=== PATIENT | female | born 1965 | race Caucasian/White ===

== ENCOUNTER 2017-01-25 05:49 | Inpatient (IN) | payer BC ==
[2017-01-25] MEDS ORDERED: MORPHINE SULFATE 15 MG TABLET.SA PO PRN (06:00)
[2017-01-25] MEDS ORDERED: TRANEXAMIC ACID 1,000 MG in NORMAL SALINE 100 ML IV PRN (06:00)
[2017-01-25] MEDS ORDERED: ceFAZolin SODIUM 1 GM VIAL IV PRN (06:00)
[2017-01-25] MEDS: RINGER'S SOLUTION,LACTATED 1,000 ML IV PRN ×2 (06:30→07:45)
[2017-01-25] MEDS ORDERED: RINGER'S SOLUTION,LACTATED 1,000 ML IV ONE ×2 (08:45→09:35)
[2017-01-25] MEDS: ROPIVACAINE HCL/PF 100 MG, KETOROLAC TROMETHAMINE 30 MG, EPINEPHrine 0.2 MG in NORMAL S... IJ PRN ×2 (09:16→09:23)
[2017-01-25] MEDS ORDERED: MAGNESIUM HYDROXIDE 30 ML UDC PO PRN (10:12)
[2017-01-25] MEDS ORDERED: MAG HYDROX/ALUMINUM HYD/SIMETH 30 ML UDC PO PRN (10:12)
[2017-01-25] MEDS ORDERED: PROMETHAZINE HCL 5 MG in DEXTROSE 5 % IN WATER 50 ML IV PRN ×2 (10:12)
[2017-01-25] MEDS ORDERED: ACETAMINOPHEN 500 MG TABLET PO PRN (10:12)
[2017-01-25] MEDS ORDERED: ZOLPIDEM TARTRATE 5 MG TABLET PO PRN (10:12)
--- NOTE | 2017-01-25 10:15 | POSTOP NO ---
Date of Surgery: 01/25/17 Anesthesia: Spinal, regional, local Patient Tolerated the Procedure: Well Post Operative Diagnosis/Procedures: Special Effects Artist: Sahil Hensley PA-C Post-operative Diagnosis: Left knee degenerative joint disease Finding: Above Procedure: Left total knee arthroplasty Estimated Blood Loss: Minimal Specimens: Bone for disposal
--- NOTE | 2017-01-25 10:17 | OR ---
Operative Report - Dictated Report Narrative: Date: 01/25/2017 Preoperative diagnosis: Left Knee degenerative joint disease. Postoperative diagnosis: Left Knee degenerative joint disease. Procedure: Left Total knee arthroplasty. Surgeon: Jossue Lazaro M.D. Manager Fashion: Sahil Hensley PA-C Anesthesia: Spinal with regional block and local periarticular joint injection. Complications: None Specimens: Bone for disposal. Estimated blood loss: Minimal. Tourniquet time: 97 Minutes at 325 millimeters of mercury. Retained implants: Depuy Attune size 6 narrow left lugged cemented posterior stabilized femoral component. Size 5 fixed-bearing cemented tibial platform. 6 by 8 millimeter posterior stabilized cross-linked tibial insert. 38 millimeter medialized patella button. Indications: Mrs. Enrique is a 51-year-old female who has had long-standing left knee pain and arthrosis. This patient was followed in my clinic for period of time with significant complaints of left knee pain consistent with arthritic changes. She had failed conservative measures including, but not limited to, activity modification, passage of time, medications, and other conservative measures. Patient wished to proceed with surgical treatment. The risks, benefits, and alternatives were discussed in clinic. The risks of , blood clots, bleeding, infection, nerve/tendon blood vessel/ injury, malposition of components, intraoperative fracture, postoperative limited range of motion, persistent pain, failure of components, and need for additional procedures. Patient wished to proceed consent was obtained after answering all questions. Procedure: After marking the correct extremity on the floor, the patient was taken to the operating room. A timeout was performed. IV antibiotics consisting of Ancef were administered prior to the procedure. A regional followed by spinal anesthetic was induced by anesthesia, per my request, on the operative table with all bony prominences well-padded. Hardy catheter was placed, and a bump was placed under the operative side buttock. SCDs and GUILLERMO hose were utilized on the nonoperative leg. A well-padded tourniquet was applied to the operative thigh. The operative leg was then pre-scrubbed with alcohol prepped, and draped in a standard sterile fashion. After exsanguinating the extremity with an Esmarch bandage, the tourniquet was inflated. After marking out the anterior knee for standard incision centered over the patella, the skin was incised and dissected down to the joint retinaculum. The joint retinaculum was marked out as well as the horizontal axis of the patella, and a standard medial parapatellar arthrotomy was then made. The most proximal aspect of the quadriceps tendon and the patella tendon insertion were protected from release. A partial synovectomy was performed as well as a resection of the infrapatellar fat pad. The distal femoral fat pad proximal to the trochlea was also resected using cautery. The soft tissues were elevated off the medial aspect of the proximal tibia using a Zuniga elevator ensuring that we did not transect the medial collateral ligament. Upon initial evaluation range of motion was approximately 0 degrees to 130 degrees of flexion. There were signs of advanced arthrosis in the medial, patellofemoral, and to a lesser degree lateral joint spaces. There were large marginal osteophytes which were removed with a rongeur. The knee was hyperflexed and the patella was tucked laterally. Protecting the surrounding soft tissues with Homans, an entry drill was placed down the femoral canal using Whitesides line for guidance into the entry point. The intramedullary femoral alignment sara was utilized in order to cut the distal femur in 5 degrees of valgus resecting 10 millimeters of bone. Next the distal femur was sized to a size 6. A posterior referencing guide was utilized to place the distal femoral cutting block in 3 degrees of external rotation. This was pinned into place. The rotation was confirmed both visually and based on anatomic landmarks. The 4 in 1 cutting jig of the appropriate size was utilized in order to make all bony cuts. The angle wing was used to ensure no notching. Retractors were utilized in order to protect surrounding soft tissues. This cut did not result in any excessive notching. We then cut the box centered over the distal femur. This allowed for resection of the anterior and posterior cruciate ligaments. I then turned my attention to the preparation of the tibia. Using an extra medullary tibial alignment sara, 3 millimeters of bone was resected off the medial articular surface. This was made perpendicular to the mechanical axis of the joint with the alignment sara centered over the ankle mortise. The alignment sara was checked and was noted to be parallel to the mechanical axis, centered over the medial one third of the tibial tubercle, paralleling the anterior surface of the tibia. We then turned our attention to the remaining meniscus and soft tissues. These were removed while protecting the surrounding ligaments and soft tissues. The marginal osteophytes off the anterior, posterior, medial, lateral aspects of the femur and tibia were removed. The tibia was sized out to a size 5. Next the tibia was drilled and punched in an externally rotated position. Next the trial femur and a series of tibial inserts were utilized in order to allow for full extension and maximal flexion. It was found that a 8 millimeter insert gave the best range of motion and stability at multiple flexion points as well as at full extension there was less than 2 mm of gapping both medially and laterally. There is minimal anterior translation with the knee at 90 degrees of flexion and no signs of being able to dislocate the knee. The patella was then prepared. The initial thickness was 21 millimeters. This was reamed down to 12 millimeters parallel to the anterior surface of the patella. It was sized out to a size 38 medialized patella button. This was then drilled and trialed. Without any medial restraint the patella tracked appropriately and did not sublux or dislocate. At this point, it was felt these were the appropriate sized implants, and all trials were removed. The standard periarticular joint injection consisting of ropivacaine, Toradol, and epinephrine were injected into the periarticular joint tissues. The bony surfaces were thoroughly irrigated with a pulsatile- suction saline irrigation device. A bone plug from the prior resected anterior chamfer cut was placed into the drill hole at the distal femur. The bony surfaces were then dried in preparation for placement of the implants. The cement was vacuum mixed per the level glass vial filler's instructions. The cement was placed on the dry bony surfaces and posterior aspect of the implants. The implants were impacted into place, removing all extruded cement. At this point anesthesia administered tranexamic acid per protocol intravenously. The knee was placed in extension with axial loading with the trial insert while the cement cured. Once the cement cured, all remaining extruded cement was removed. The knee was placed through a range of motion with the trial insert to ensure appropriate range of motion and stability. Final range of motion was approximately 0 to 120 degrees. The knee was again thoroughly irrigated with pulsatile saline lavage. The final polyethylene insert was then impacted into place ensuring no retained soft tissues. The remaining periarticular joint injection was injected. A medium Hemovac drain was placed exiting superior laterally. The knee was then placed over a triangle and the arthrotomy was closed with interrupted #1 Vicryl after thoroughly irrigating the joint. The deep and subcutaneous tissues were closed with interrupted 0 and 3-0 Vicryl respectively. Skin was closed with a running subcutaneous 3-0 Monocryl and Prineo Dermabond dressing. 4 x 4's, Sof-Rol, and a full leg Anshu wrap were applied. All sponge, needle, blade, and instrument counts were correct prior to closing the wounds. Postoperative condition: The patient was awoken and transferred to the postanesthesia care unit in stable condition. Plan is to be admitted to the inpatient medical/surgical floor postoperatively for 24 hours of IV antibiotics , physical therapy, occupational therapy, and medical comanagement. Patient will be weightbearing as tolerated with range of motion as tolerated. DVT prophylaxis will be with SCDs, GUILLEROM hose, and pharmacological anticoagulation. Anticipated hospital stay is approximately 2-4 days.
--- NOTE | 2017-01-25 10:34 | OR ---
Anesthesia Procedure Note - Anesthesia Procedure Note Date of Service: 01/25/17 Narrative: Vital Signs - Last Taken Temp 36.8 C 01/25/17 07:20 Pulse 60 01/25/17 07:20 Resp 18 01/25/17 07:20 BP 143/92 01/25/17 07:20 Pulse Ox 99 01/25/17 07:20 O2 Oxygen Delivery Method Room Air 01/25/17 10:32 ANESTHESIA PROCEDURE NOTE Date of Procedure: 01/25/2017. Time of procedure: 744. Performed by: Maciel Mcgee CRNA Assistant Golf Course Superintendent: None. Preprocedure diagnosis: Left knee DJD. Post procedure diagnosis: Same. Procedure: Left ultrasound guided femoral block for postoperative analgesia. Indications: The patient is a 51 -year-old female, who is scheduled for left knee total arthroscopy and is requesting a left ultrasound-guided femoral nerve block for postoperative analgesia. Findings: See below. Details of the procedure: The tissue over the intended target site was cleansed with ChloraPrep. 1 ml Lidocaine 1 % was infiltrated to the skin and subcutaneous tissue. Under sterile technique and ultrasound guidance a 21-gauge block needle was inserted anterior to the left femoral nerve . 30 mL's of 0.5% bupivacaine plus epinephrine 1:200,000 was injected after negative aspiration for blood. Needle tip and spread of local anesthetic surrounding the femoral nerve was observed throughout the injection with realtime ultrasound visualization. The needle was removed intact. No complications were noted. The images were retained in the Hospital medical database . EBL: Minimal. Fluids: N/A. Specimen: N/A. Post procedure condition: The patient tolerated the procedure well. No complications were noted. Thank you for this consultation. Maciel Mcgee CRNA
[2017-01-25] MEDS ORDERED: NALOXONE HCL 0.4 MG/ML VIAL IV PRN (10:46)
[2017-01-25] MEDS ORDERED: HYDROmorphone HCL 2 MG/ML VIAL IV PRN (10:46)
[2017-01-25] MEDS ORDERED: HYDROmorphone HCL 1 MG/ML DISP.SYRIN IV PRN (10:49)
[2017-01-25] MEDS: DEXTROSE 5%-LACTATED RINGERS 1,000 ML IV PRN ×2 (11:18→20:17)
[2017-01-25] MEDS: KETOROLAC TROMETHAMINE 15 MG/ML VIAL IV SCH ×3 (11:20→23:51)
[2017-01-25] MEDS: ceFAZolin SODIUM 1 GM in DEXTROSE 5 % IN WATER 100 ML IV SCH ×6 (11:21→23:51)
[2017-01-25] MEDS: diphenhydrAMINE HCL 50 MG/ML VIAL IV PRN ×2 (11:24→19:02)
[2017-01-25] MEDS: HYDROmorphone HCL 1 MG/ML DISP.SYRIN IV PRN ×2 (19:02→21:07)
[2017-01-25] MEDS: MORPHINE SULFATE 15 MG TABLET.SA PO SCH (20:16)
[2017-01-25] MEDS: SENNOSIDES/DOCUSATE SODIUM 1 TAB TABLET PO SCH (20:16)
[2017-01-25] MEDS: oxyCODONE HCL/ACETAMINOPHEN 1 TAB TABLET PO PRN (22:10)
[2017-01-26] MEDS: oxyCODONE HCL/ACETAMINOPHEN 1 TAB TABLET PO PRN ×4 (02:37→23:17)
[2017-01-26] MEDS: diphenhydrAMINE HCL 50 MG/ML VIAL IV PRN ×2 (04:33→08:53)
[2017-01-26] MEDS: KETOROLAC TROMETHAMINE 15 MG/ML VIAL IV SCH ×4 (04:34→23:23)
[2017-01-26 05:42] LABS: Hemoglobin 10.2 gm/dL (12.5-16.0); Mean Cell Volume 86.6 fl (78-100); Mean Corpuscular Hemoglobin 28.5 pg (27-31); Mean Corpuscular Hgb Conc 32.9 g/dl (32-36); Mean Platelet Volume 12.6 fl (6.0-9.5); Platelet Count 236 K/mm3 (150-450); Red Blood Count 3.58 M/mm3 (4.2-5.4); Red Cell Distribution Width 14.6 % (11.5-14.0)
[2017-01-26 05:45] LABS: Anion Gap 7.7 mmol/L (6.8-13.8); BUN/Creatinine Ratio 11.1 (9.0-21.6); Calcium * 8.2 mg/dL (7.9-10.9); Carbon Dioxide 32.2 mmol/L (24-32.6); Estimated Creat Clear 62.4; Potassium 2.9 mmol/L (3.4-4.6)
[2017-01-26] MEDS: PANTOPRAZOLE SODIUM 40 MG TABLET.EC PO SCH (06:42)
[2017-01-26] MEDS: MORPHINE SULFATE 15 MG TABLET.SA PO SCH ×2 (08:38→20:15)
[2017-01-26] MEDS: amLODIPine BESYLATE 10 MG TABLET PO SCH (08:38)
[2017-01-26] MEDS: HYDROCHLOROTHIAZIDE 25 MG TABLET PO SCH (08:39)
[2017-01-26] MEDS: ATENOLOL 50 MG TABLET PO SCH (08:39)
[2017-01-26] MEDS: OXYBUTYNIN CHLORIDE 5 MG TABLET PO SCH ×2 (08:39→20:15)
[2017-01-26] MEDS: ENOXAPARIN SODIUM 40 MG/0.4 ML SYRG SC SCH (08:39)
[2017-01-26] MEDS: POTASSIUM CHLORIDE 20 MEQ TABLET.SA PO ONE ×2 (08:43→12:36)
--- NOTE | 2017-01-26 09:55 | PN ---
Subjective - Date and Time Seen Date: 01/26/17 Time: 09:53 Subjective Narrative: Subjective: Reports mild pain and buckling of her knee yesterday but this is improved this morning. Was able to walk in the room with therapy. Pain is well -controlled. Voiding without any complications. Tolerating by mouth intake. Denies any nausea or vomiting. Denies calf pain. Slept well. Physical exam: Alert and oriented to person, place and time Left lower Extremity: Palpable dorsalis pedis pulse. Sensation grossly intact to light touch. Dressings clean and dry. Able to flex and extend ankle and toes. No excessive drainage. Calf and thigh are soft and nontender. Assessment: Postop day 1 status post left total knee arthroplasty. Plan: Due to the need for pain control, post-operative limited mobility, protection of the surgical site and joint, monitoring of the wound, and the management of chronic medical conditions, she requires continued inpatient care. She has not met her physical therapy goals for discharge to home. Continue with physical and occupational therapy weightbearing as tolerated. Continue with anticoagulation. 24 hours postoperative prophylactic antibiotics. Pain control with goal to rely on oral medications. Continue bowel regimen. Will need 6 weeks with walker or assitive device to protect joint while ambulating during the recovery process. Discharge planning. Discontinue drain and Hardy catheter. Repeat hemogram and BMP in a.m. in order to monitor for postoperative anemia and electrolyte imbalance. Her potassium is low today and this is being replaced orally Objective - Vitals Vitals: Last Vital Signs Temp 37.6 C H 01/26/17 06:21 Pulse 74 01/26/17 08:39 Resp 18 01/26/17 06:21 BP 111/60 01/26/17 08:39 Pulse Ox 94 01/26/17 06:21 - Abnormal Lab Findings Abnormal Lab Findings: Abnormal Lab Results 01/26/17 01/26/17 Range/Units 05:15 05:15 WBC 12.0 H (4.0-10.5) K/mm3 RBC 3.58 L (4.2-5.4) M/mm3 Hgb 10.2 L (12.5-16.0) gm/dL Hct 31.0 L (37.0-47.0) % RDW 14.6 H (11.5-14.0) % MPV 12.6 H (6.0-9.5) fl Potassium 2.9 L D (3.4-4.6) mmol/L Random Glucose 116 H (70-110) mg/dL Cauti Physician Documentation - Urinary Catheter Management Urethral (Hardy) Urethral Indwelling: No Date of Insertion: 01/25/17 Time of Insertion: 08:10 Date of Removal: 01/26/17 Time of Removal: 06:35 Assessment/Plan - Problems/Diagnosis (1) Acute blood loss anemia Problem: Acute (2) Total knee replacement status Problem: Acute Qualifiers: Laterality: left Qualified Code(s): Z96.652 - Presence of left artificial knee joint (3) GERD (gastroesophageal reflux disease) Problem: Chronic (4) HTN (hypertension) Problem: Chronic (5) Hypokalemia Problem: Acute (6) OAB (overactive bladder) Problem: Chronic
[2017-01-26] MEDS: HYDROmorphone HCL 1 MG/ML DISP.SYRIN IV PRN (15:28)
[2017-01-26] MEDS: SENNOSIDES/DOCUSATE SODIUM 1 TAB TABLET PO SCH (20:15)
[2017-01-27] MEDS: KETOROLAC TROMETHAMINE 15 MG/ML VIAL IV SCH (05:09)
[2017-01-27] MEDS: oxyCODONE HCL/ACETAMINOPHEN 1 TAB TABLET PO PRN ×4 (06:38→23:21)
[2017-01-27 06:39] LABS: Hemoglobin 9.6 gm/dL (12.5-16.0); Mean Cell Volume 87.6 fl (78-100); Mean Corpuscular Hgb Conc 33.1 g/dl (32-36); Mean Platelet Volume 12.6 fl (6.0-9.5); Platelet Count 208 K/mm3 (150-450); Red Blood Count 3.31 M/mm3 (4.2-5.4); Red Cell Distribution Width 14.5 % (11.5-14.0)
[2017-01-27] MEDS: diphenhydrAMINE HCL 50 MG/ML VIAL IV PRN ×2 (06:39→23:18)
[2017-01-27] MEDS: PANTOPRAZOLE SODIUM 40 MG TABLET.EC PO SCH (06:40)
[2017-01-27 07:00] LABS: Anion Gap 10.1 mmol/L (6.8-13.8); BUN/Creatinine Ratio 12.7 (9.0-21.6); Calcium * 8.3 mg/dL (7.9-10.9); Carbon Dioxide 29.3 mmol/L (24-32.6); Estimated Creat Clear 55.1; Potassium 3.4 mmol/L (3.4-4.6)
[2017-01-27] MEDS: OXYBUTYNIN CHLORIDE 5 MG TABLET PO SCH ×2 (08:19→20:03)
[2017-01-27] MEDS: HYDROCHLOROTHIAZIDE 25 MG TABLET PO SCH (08:19)
[2017-01-27] MEDS: ENOXAPARIN SODIUM 40 MG/0.4 ML SYRG SC SCH (08:20)
[2017-01-27] MEDS: MORPHINE SULFATE 15 MG TABLET.SA PO SCH ×2 (08:24→20:03)
[2017-01-27] MEDS: ATENOLOL 50 MG TABLET PO SCH (08:25)
[2017-01-27] MEDS: amLODIPine BESYLATE 10 MG TABLET PO SCH (08:25)
[2017-01-27] MEDS: ONDANSETRON HCL/PF 2 MG/ML VIAL IV PRN (14:29)
--- NOTE | 2017-01-27 14:45 | PN ---
Subjective - Date and Time Seen Date: 01/27/17 Time: 14:42 Subjective Narrative: Subjective: Reports stable pain but nausea and chills today. Was unable to eat lunch. Did well with PT. Was able to walk in the [place] with therapy. Pain is well-controlled. Voiding without any complications. Denies calf pain. Slept well. Physical exam: Alert and oriented to person, place and time Left lower Extremity: Palpable dorsalis pedis pulse. Sensation grossly intact to light touch. wound benign. Able to flex and extend ankle and toes. No excessive drainage. Calf and thigh are soft and nontender. Assessment: Postop day 2 status post left total knee arthroplasty. Plan: Due to the need for pain control, post-operative limited mobility, protection of the surgical site and joint, naustea, monitoring of the wound, and the management of chronic medical conditions, she requires continued inpatient care. She has not met her physical therapy goals for discharge to home. Continue with physical and occupational therapy weightbearing as tolerated. Continue with anticoagulation. Will monitor for nausea with pain meds but she has tolerated these in the past and does not feel it is related to pain meds. Pain control with goal to rely on oral medications. Continue bowel regimen. Will need 6 weeks with walker or assitive device to protect joint while ambulating during the recovery process. Discharge planning. Objective - Vitals Vitals: Last Vital Signs Temp 36.7 C 01/27/17 10:06 Pulse 62 01/27/17 10:06 Resp 20 01/27/17 10:06 BP 113/62 01/27/17 10:06 Pulse Ox 94 01/27/17 10:06 - Abnormal Lab Findings Abnormal Lab Findings: Abnormal Lab Results 01/27/17 Range/Units 06:10 WBC 14.0 H (4.0-10.5) K/mm3 RBC 3.31 L (4.2-5.4) M/mm3 Hgb 9.6 L (12.5-16.0) gm/dL Hct 29.0 L (37.0-47.0) % RDW 14.5 H (11.5-14.0) % MPV 12.6 H (6.0-9.5) fl Cauti Physician Documentation - Urinary Catheter Management Urethral (Hardy) Urethral Indwelling: No Date of Insertion: 01/25/17 Time of Insertion: 08:10 Date of Removal: 01/26/17 Time of Removal: 06:35 Assessment/Plan - Problems/Diagnosis (1) Acute blood loss anemia Problem: Acute (2) Total knee replacement status Problem: Acute Qualifiers: Laterality: left Qualified Code(s): Z96.652 - Presence of left artificial knee joint (3) GERD (gastroesophageal reflux disease) Problem: Chronic (4) HTN (hypertension) Problem: Chronic (5) Hypokalemia Problem: Acute (6) OAB (overactive bladder) Problem: Chronic
[2017-01-27] MEDS: SENNOSIDES/DOCUSATE SODIUM 1 TAB TABLET PO SCH (20:03)
[2017-01-28] MEDS: oxyCODONE HCL/ACETAMINOPHEN 1 TAB TABLET PO PRN ×3 (06:28→15:47)
[2017-01-28] MEDS: PANTOPRAZOLE SODIUM 40 MG TABLET.EC PO SCH (06:29)
[2017-01-28] MEDS: ONDANSETRON HCL/PF 2 MG/ML VIAL IV PRN (06:29)
[2017-01-28] MEDS: MORPHINE SULFATE 15 MG TABLET.SA PO SCH (09:13)
[2017-01-28] MEDS: amLODIPine BESYLATE 10 MG TABLET PO SCH (09:13)
[2017-01-28] MEDS: HYDROCHLOROTHIAZIDE 25 MG TABLET PO SCH (09:14)
[2017-01-28] MEDS: ATENOLOL 50 MG TABLET PO SCH (09:14)
[2017-01-28] MEDS: OXYBUTYNIN CHLORIDE 5 MG TABLET PO SCH (09:14)
[2017-01-28] MEDS: ENOXAPARIN SODIUM 40 MG/0.4 ML SYRG SC SCH (09:14)
[2017-01-28 11:57] VITALS: BP 104/48
--- NOTE | 2017-01-28 14:29 | DS ---
(1) Acute blood loss anemia Problem: Acute (2) Total knee replacement status Problem: Acute Qualifiers: Laterality: left Qualified Code(s): Z96.652 - Presence of left artificial knee joint (3) GERD (gastroesophageal reflux disease) Problem: Chronic (4) HTN (hypertension) Problem: Chronic (5) Hypokalemia Problem: Chronic (6) OAB (overactive bladder) Problem: Chronic Description of Stay: Mrs. Enrique was admitted to the floor after undergoing left total knee arthroplasty. Tolerated this well. Was admitted to the floor postoperatively for 24 hours of IV antibiotics, pain control, medical comanagement, and occupational and physical therapy. OT and PT were consulted to assist with activities of daily living and ambulation. Was made weightbearing as tolerated with range of motion as tolerated. Pain was initially controlled with IV regimen. This was transitioned to oral once tolerating a by mouth intake. Was resumed on home diet and medications. Had a Hardy catheter inserted and the operating room which was discontinued on postoperative day 1. A drain was placed intraoperatively into the knee which was discontinued on postoperative day 1. Lovenox SCD and GUILLERMO hose were utilized for DVT prophylaxis. Vital signs remained stable to the hospital course. Serial labs were obtained which showed a final hemoglobin of 9.6 grams. BMP was reviewed and was stable. Physical examination throughout the hospital course showed an extremity that had sensation that was intact to light touch, palpable pulses, a benign wound, motor intact to the toes, ankle, and knee. Knee range of motion was approximately 0 degrees to 70 degrees. Once an oral pain regimen was tolerated and physical therapy goals were met, it was felt that they were stable for discharge to home. Instructions: Continue with weightbearing as tolerated and range of motion as tolerated. It is okay to shower and get the wound wet as long as there is no drainage from the wound. Do not bathe or soak the wound. If there is any drainage from the wound keep the wound clean and dry and cover with dry gauze and tape. Change every 2-3 days as needed if there is any drainage. Cover wound while showering if there is any drainage. Continue with physical therapy. Resume home diet. Report any fever over 101.5 Fahrenheit, uncontrolled pain, increased drainage, foul odor of drainage, new or increased calf pain or shortness of breath, or any other significant complaints. A 325mg dialy aspirin will be started after finishing anticoagulation if not allergic. Continue with GUILLERMO hose on the operative extremity until instructed otherwise. No driving until instructed otherwise. Follow up in approximately 10-14 days. Procedures Performed: see notes below List Procedures: Left total knee arthroplasty Discharge Disposition: Home self care Disposition: Home self-care Condition: Good Discharge Activity: Activity as tolerated, Weight bearing Discharge Diet: General/regular food Alf Therapy: Physicial Therapy Referrals: Coral Gonzalez FNP [Primary Care Provider] - Additional Patient Instructions (free text): Outpatient Physical Therapy appt at [facility] on MondayJanuary 30 at 9: 45am. Follow up with Dr. Lazaro on February at 10:45 am. Prescriptions (Any new or edited meds): Enoxaparin Sodium [Lovenox] 40 mg SC Q24H #7 disp.syrin Morphine Sulfate [Ms Contin] 15 mg PO Q12H #20 tablet.sa oxyCODONE HCL/ACETAMINOPHEN [Percocet 5 MG/325 MG] 2 tab PO Q4H PRN #90 tablet PRN Reason: Moderate Pain Promethazine HCl [Phenergan (Promethazine)] 25 mg PO Q6H PRN #30 tab PRN Reason: nausea/vomiting Complete Home Medications List: Complete Home Medication List: amLODIPine BESYLATE [Norvasc] 10 mg PO DAILY 08/08/12 Atenolol [Tenormin] 50 mg PO DAILY 07/22/13 Esomeprazole Magnesium [Nexium] 40 - 80 mg PO DAILY 07/22/13 Estrogens, Conjugated [Premarin] 1 applic VG 2XW 05/15/15 Hydrochlorothiazide [Hydrodiuril] 25 mg PO DAILY 05/27/15 Ibuprofen [Motrin] 800 mg PO Q8H PRN 12/29/16 Oxybutynin Chloride [Ditropan Xl] 10 mg PO DAILY 12/29/16 Enoxaparin Sodium [Lovenox] 40 mg SC Q24H #7 disp.syrin 01/28/17 Morphine Sulfate [Ms Contin] 15 mg PO Q12H #20 tablet.sa 01/28/17 Promethazine HCl [Phenergan (Promethazine)] 25 mg PO Q6H PRN #30 tab 01/28/17 Sennosides/Docusate Sodium [Senokot-S] 2 tab PO HS tablet 01/28/17 oxyCODONE HCL/ACETAMINOPHEN [Percocet 5 MG/325 MG] 2 tab PO Q4H PRN #90 tablet 01/28/17 Amb Orders for Discharge: PT Evaluation and Treatment Facility: [facility], Location: Rehabilitation Services
== END 2017-01-28 16:10 | disposition home or self-care (01) | DRG 470 ==
LOC: MS 05:49
PROVIDERS: ADMIT Orthopaedic Surgery; ATTEND Orthopaedic Surgery
PROC: 0SRD0J9 Replacement of Left Knee Joint with Synthetic Substitute, Cemented, Open Approach (ICD-10-PCS; principal; 2017-01-25 08:00)
DX: M17.0 Bilateral primary osteoarthritis of knee (principal); D62 Acute posthemorrhagic anemia; E87.6 Hypokalemia; I10 Essential (primary) hypertension; K21.9 Gastro-esophageal reflux disease without esophagitis; N32.81 Overactive bladder
CPT/HCPCS: 27447; 36415; 73560; 80048; 85027; 97110; 97116; 97162; J2405